=== PATIENT | male | born 1990 | race Two or more races ===

== ENCOUNTER 2021-05-14 16:03 | Emergency (ER) | payer OTHER ==
[~2021-05-14] VITALS: Ht 185.4 cm; Wt 65.9 kg
[2021-05-14 16:24] VITALS: BP 128/78
[2021-05-14] MEDS ORDERED: ACETAMINOPHEN 500 MG TABLET PO ONE (17:15)
[2021-05-14] MEDS ORDERED: KETOROLAC TROMETHAMINE 30 MG/ML VIAL IM ONE (17:15)
== END 2021-05-14 16:42 | disposition left against medical advice (07) ==
LOC: EMS 16:08
DX: R10.9 Unspecified abdominal pain (principal); Z53.21 Procedure and treatment not carried out due to patient leaving prior to being seen by health care provider